=== PATIENT | female | born 1935 | race Caucasian/White ===

== ENCOUNTER 2017-01-04 14:09 | Emergency (ER) | payer MEDICARE, OTHER ==
[2017-01-04] MEDS ORDERED: ONDANSETRON 4 MG ODT TABLET SL ONE (14:55)
[2017-01-04] MEDS ORDERED: MECLIZINE 25 MG TABLET PO ONE (14:55)
--- NOTE | 2017-01-04 14:55 | Emergency Department Record ---
History of Present Illness - General Chief Complaint: Fall Injury Stated Complaint: FALL Time Seen by Provider: 01/04/17 14:40 Source: Patient, Family Mode of Arrival: Wheelchair - History of Present Illness Initial Comments: 81 yo female presents with episodes of feeling dizzy, some nausea since Wednesday. She fell off a stool last Wednesday and hit her head in the frontal area causing a laceration. She developed some nausea nad dizziness over the weekend. The injury occurred in [place]. She is moving up to [place] with family. She denies any fevers. weakness, numbness, chest pain, shortness of breath. 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 The patient states this is a known condition since 2009. She and her daughter are getting a new PCP and will seek a spine referral to follow her in [place] as well. She had a new PCP to see. 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 Place Fall Occurred: Home Loss of Consciousness: None Prolonged Down Time?: No Symptoms Prior to Fall: None Location: Head Severity: Moderate Severity scale (1-10): 6 Associated Symptoms: Headache, Other - [place] Coma Scale Eye Response: (4) Open spontaneously Motor Response: (6) Obeys commands Verbal Response: (5) Oriented [place] Total: 15 - Related Data Home Medications Medication Instructions Recorded Confirmed Last Taken Alprazolam 0.25 mg PO ASDIR 01/04/17 01/04/17 01/01/17 Atorvastatin Calcium 40 mg PO DAILY 01/04/17 01/04/17 01/01/17 Benazepril HCl [Lotensin] 40 mg PO DAILY 01/04/17 01/04/17 01/01/17 Cholecalciferol (Vitamin D3) 2,000 unit PO DAILY 01/04/17 01/04/17 01/01/17 [Vitamin D3] Cyanocobalamin (Vitamin B-12) 1,000 mcg PO DAILY 01/04/17 01/04/17 01/01/17 [Vitamin B-12] Gabapentin [Neurontin] 600 mg PO Q6H 01/04/17 01/04/17 01/01/17 Hydrochlorothiazide [Hctz 25Mg] 25 mg PO DAILY 01/04/17 01/04/17 01/01/17 Levothyroxine Sodium [Synthroid] 88 mcg PO DAILY 01/04/17 01/04/17 01/01/17 Mv,Ca,Min/Folic Acid/Vit K1 1 each PO DAILY 01/04/17 01/04/17 01/01/17 [One-A-Day Women's 50 Plus Tab] Naproxen [Naprosyn] 500 mg PO BID 01/04/17 01/04/17 01/01/17 Omeprazole 20 mg PO TID 01/04/17 01/04/17 01/01/17 Tramadol HCl 50 mg PO Q8H 01/04/17 01/04/17 01/01/17 Verapamil HCl [Calan] 80 mg PO TID 01/04/17 01/04/17 01/01/17 Vitamin E 1,000 unit PO DAILY 01/04/17 01/04/17 01/01/17 Previous Rx's Medication Instructions Recorded Meclizine HCl [Antivert] 25 mg PO Q8H #20 tablet 01/04/17 Ondansetron [Zofran Odt] 4 mg PO Q8H #20 tab.rapdis 01/04/17 Allergies Allergy/AdvReac Type Severity Reaction Status Date / Time bee pollen Allergy Severe ANAPHYLAXIS Verified 01/04/17 14:30 Penicillins Allergy Severe DIFFICULTY Verified 01/04/17 14:30 BREATHING procaine HCl [From Novocain] Allergy Severe DIFFICULTY Verified 01/04/17 14:30 BREATHING Sulfa (Sulfonamide Allergy Severe HIVES Verified 01/04/17 14:30 Antibiotics) codeine AdvReac Severe HEADACHE Verified 01/04/17 14:30 Travel Screening - Travel/Exposure Within Last 30 Days Have you traveled within the last 30 days?: No Review of Systems Constitutional: Denies: Chills, Fever, Malaise, Weakness Eyes: Reports: Vision change (she feels like she has trouble reading since the fall and her glasses were repaired. No changes with distance.). Denies: Eye discharge, Eye pain, Photophobia ENT: Denies: Congestion, Throat pain Respiratory: Denies: Cough, Stridor, Wheezes Cardiovascular: Denies: Chest pain, Palpitations, Syncope Endocrine: Denies: Fatigue Gastrointestinal: Denies: Abdominal pain, Diarrhea, Nausea, Vomiting Genitourinary: Denies: Dysuria, Urgency Musculoskeletal: Denies: Arthralgia, Back pain, Joint swelling, Myalgia, Neck pain Neurological: Reports: Headache, Vertigo. Denies: Abnormal gait, Confusion, Numbness, Paresthesias, Tingling, Tremors, Weakness Psychiatric: Denies: Anxiety Hematological/Lymphatic: Denies: Anemia, Blood Clots, Easy bleeding, Easy bruising, Swollen glands Past Medical History - SOCIAL HISTORY Smoking Status: Former smoker Alcohol Use: Occassional Drug Use: None - RESPIRATORY Hx Respiratory Disorders: No - CARDIOVASCULAR Hx Cardio Disorders: Yes Hx Hypertension: Yes Comment:: high cholesterol - NEURO Hx Neuro Disorders: No - GI Hx GI Disorders: Yes Hx Reflux: Yes - Hx Genitourinary Disorders: Yes Hx Renal Disease: Yes (hx of renal dialysis x6 weeks) - ENDOCRINE Hx Endocrine Disorders: Yes Hx Diabetes: Yes (diet controlled) Hx Thyroid Disease: Yes - MUSCULOSKELETAL Hx Musculoskeletal Disorders: Yes Hx Arthritis: Yes - PSYCH Hx Psych Problems: No - HEMATOLOGY/ONCOLOGY Hx Hematology/Oncology Disorders: Yes Hx Cancer: Yes (breast, skin) Hx Chemotherapy: Yes Hx Radiation Therapy: Yes Family Medical History Any Significant Family History?: Yes Family Hx Comment (NOT TO BE USED IN PLACE OF ITEMS BELOW): Daughter- breast cancer. Aunt- breast cancer Hx Cancer: Brother/Sister Hx Heart Disease: Father, Mother, Brother/Sister Course Vital Signs 01/04/17 14:22 Temperature 98.4 F Pulse Rate 89 Respiratory 18 Rate Blood Pressure 133/87 Pulse Ox 95 - Reevaluation(s) Reevaluation #1: HCT on 12/29/16 Negative 01/04/17 14:56 Reevaluation #2: The HCT scan was negative for any acute injury. 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 01/04/17 15:35 Disposition Disposition: Discharge Clinical Impression: Concussion Qualifiers: Encounter type: initial encounter Loss of consciousness presence/duration: without LOC Qualified Code(s): S06.0X0A - Concussion without loss of consciousness, initial encounter Disposition: Home, Self-Care Condition: (1) Good Instructions: Fall Prevention for Older Adults (ED), Concussion (ED) Additional Instructions: Call your new doctor as soon as possible for followup Return or seek medical care if worse, uncontrolled dizziness or vomiting You are being referred to the [facility] specialty clinic for eye care Prescriptions: Meclizine HCl [Antivert] 25 mg PO Q8H #20 tablet Ondansetron [Zofran Odt] 4 mg PO Q8H #20 tab.rapdis Forms: Patient Portal Access Time of Disposition: 15:38
--- NOTE | 2017-01-07 12:22 | CT SCAN REPORT ---
EXAM: CT OF THE HEAD WITHOUT CONTRAST HISTORY: DIZZINESS AND INTERMITTENT HEADACHE SEVEN DAYS POST HEAD TRAUMA. TECHNIQUE: Routine noncontrast CT examination of the head was performed. Comparison: None at this time. Correlation is made with report from CT head examination dated 12/29/16 from an institution in the [facility]. FINDINGS: There is moderate dilatation of the subarachnoid spaces and borderline ventriculomegaly consistent with generalized atrophy. There is evidence of an old infarct within the superolateral left cerebellar hemisphere versus deep sulcus measuring 5 x 9 mm. Mild periventricular and subcortical white matter lucencies are noted in each cerebral hemisphere. These are nonspecific, but likely areas of chronic small vessel ischemia. No other area of abnormally increased or decreased attenuation is noted throughout the brain substance. No abnormal extraaxial fluid collection nor skull fracture is seen. Surgical skin ernestina are noted in the frontal scalp. These are located left of midline. The visualized paranasal sinuses and mastoid air cells are clear. Post cataract surgery changes are noted bilaterally. IMPRESSION: 1. NO CT EVIDENCE OF ACUTE MAJOR VESSEL INFARCT, INTRACRANIAL HEMORRHAGE, MASS NOR SKULL FRACTURE. 2. GENERALIZED ATROPHY. 3. 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 4. SKIN ERNESTINA WITHIN THE ANTERIOR FRONTAL SCALP. JOB NUMBER: [id number] [facility]
== END 2017-01-04 16:04 | disposition home or self-care (01) ==
LOC: ER 14:09
DX: S06.0X0A Concussion without loss of consciousness, initial encounter (principal); R42 Dizziness and giddiness; R51 Headache; R11.0 Nausea; W08.XXXA Fall from other furniture, initial encounter; Y92.009 Unspecified place in unspecified non-institutional (private) residence as the place of occurrence of the external cause; I12.0 Hypertensive chronic kidney disease with stage 5 chronic kidney disease or end stage renal disease; E11.22 Type 2 diabetes mellitus with diabetic chronic kidney disease; N18.6 End stage renal disease; Z87.891 Personal history of nicotine dependence
CPT/HCPCS: 70450; 99283; 99284

== ENCOUNTER 2017-11-05 10:11 | Emergency (ER) | payer MEDICARE, OTHER ==
--- NOTE | 2017-11-05 10:18 | Emergency Department Record ---
History of Present Illness - General Chief Complaint: Laceration(s) Stated Complaint: LACERATION Time Seen by Provider: 11/05/17 10:12 Source: Patient Mode of Arrival: Ambulatory Limitations: No limitations - History of Present Illness Initial Commments: 82 yo female presents with a concern about a re-injury to her left lower anternior leg. She had a scab from a prior injury that was scraped off by a piece of dropped tupperware. The area bleed for about 2 hours. The patient cleaned the area and the dressed it. Her tetanus is up to date. Prior to the injury this morning the area had developed some surrounding redness. -: Hour(s) (2) Extremity Location: Left: Lower leg Place: Home Context: Accidental Associated Symptoms: None Treatments Prior to Arrival: Bandage - [place] Coma Scale Eye Response: (4) Open spontaneously Motor Response: (6) Obeys commands Verbal Response: (5) Oriented [place] Total: 15 - Related Data Home Medications Medication Instructions Recorded Confirmed Last Taken Duloxetine HCl [Cymbalta] 30 mg PO DAILY 11/05/17 11/05/17 Unknown Previous Rx's Medication Instructions Recorded Cephalexin [Keflex] 500 mg PO TID #21 cap 11/05/17 Allergies Allergy/AdvReac Type Severity Reaction Status Date / Time bee pollen Allergy Severe ANAPHYLAXIS Verified 01/04/17 14:30 Penicillins Allergy Severe DIFFICULTY Verified 01/04/17 14:30 BREATHING procaine HCl [From Novocain] Allergy Severe DIFFICULTY Verified 01/04/17 14:30 BREATHING Sulfa (Sulfonamide Allergy Severe HIVES Verified 01/04/17 14:30 Antibiotics) codeine AdvReac Severe HEADACHE Verified 01/04/17 14:30 Review of Systems Constitutional: Denies: Chills, Fever, Malaise, Weakness Eyes: Denies: Eye discharge ENT: Denies: Congestion, Throat pain Respiratory: Denies: Cough Cardiovascular: Denies: Chest pain Endocrine: Denies: Fatigue Gastrointestinal: Denies: Abdominal pain, Diarrhea, Nausea, Vomiting Genitourinary: Denies: Dysuria Musculoskeletal: Denies: Arthralgia, Back pain, Joint swelling, Myalgia Skin: Reports: As per HPI, Change in color. Denies: Bruising Neurological: Denies: Confusion, Headache Psychiatric: Denies: Anxiety Hematological/Lymphatic: Denies: Blood Clots, Easy bleeding, Easy bruising, Swollen glands Past Medical History - SOCIAL HISTORY Smoking Status: Former smoker Drug Use: None - RESPIRATORY Hx Respiratory Disorders: No - CARDIOVASCULAR Hx Cardio Disorders: Yes Hx Hypertension: Yes Comment:: high cholesterol - NEURO Hx Neuro Disorders: No - GI Hx GI Disorders: Yes Hx Reflux: Yes - Hx Genitourinary Disorders: Yes Hx Renal Disease: Yes (hx of renal dialysis x6 weeks) - ENDOCRINE Hx Endocrine Disorders: Yes Hx Diabetes: Yes (diet controlled) Hx Thyroid Disease: Yes - MUSCULOSKELETAL Hx Musculoskeletal Disorders: Yes Hx Arthritis: Yes - PSYCH Hx Psych Problems: No - HEMATOLOGY/ONCOLOGY Hx Hematology/Oncology Disorders: Yes Hx Cancer: Yes (breast, skin) Hx Chemotherapy: Yes Hx Radiation Therapy: Yes Family Medical History Family Hx Comment (NOT TO BE USED IN PLACE OF ITEMS BELOW): Daughter- breast cancer. Aunt- breast cancer Hx Cancer: Brother/Sister Hx Heart Disease: Father, Mother, Brother/Sister Physical Exam - General General Appearance: Alert, Oriented x3, Cooperative, No acute distress Limitations: No limitations - Head Head exam: Normal inspection - Eye Eye exam: Normal appearance - ENT ENT exam: Normal exam Ear exam: Normal external inspection Nasal Exam: Normal inspection Mouth exam: Normal external inspection - Neck Neck exam: Normal inspection - Cardiovascular Cardiovascular Exam: Regular rate, Normal rhythm - Rectal Rectal exam: Deferred - exam: Deferred - Extremities Extremities exam: Full ROM, Normal capillary refill. negative: Normal inspection, Tenderness Image of Full Body: 1 - 1cm skin tear, dry and clean without bleeding, 1cm surrounding redness, no pus - Back Back exam: Reports: Full ROM - Neurological Neurological exam: Alert, Normal gait, Oriented X3 - Psychiatric Psychiatric exam: Normal affect, Normal mood - Skin Skin exam: Dry, Intact, Normal color, Warm Course - Reevaluation(s) Reevaluation #1: The skin tear was cleaned with dermal wound shoe cleaner and NS NO bleeding The 1cm skin tear was treated with steri strips with good results. 11/05/17 10:16 11/05/17 10:25 Dressing were provided Kelfex RX provided for the erythema that had been developing over the last few days Disposition Disposition: Discharge Clinical Impression: Skin tear Cellulitis Qualifiers: Site of cellulitis: extremity Site of cellulitis of extremity: lower extremity Laterality: left Qualified Code(s): L03.116 - Cellulitis of left lower limb Disposition: Home, Self-Care Condition: (1) Good Instructions: Cellulitis (ED), Skin Tear (ED) Additional Instructions: Return if you have bleeding, pain, swelling, spreading redness or pus Follow up in one week to recheck the area with your doctor Prescriptions: Cephalexin [Keflex] 500 mg PO TID #21 cap Forms: Patient Portal Access Time of Disposition: 10:18 Quality - Quality Measures Quality Measures: N/A - Blood Pressure Screening Does Patient Have Any of the Following: No Blood Pressure Classification: Pre-Hypertensive BP Reading Systolic Measurement: 132 Diastolic Measurement: 79 Screening for High Blood Pressure: < Pre-Hypertensive BP, F/U Documented > [ [id number]] Pre-Hypertensive Follow-up Interventions: Referral to alternative/primary care provider.
== END 2017-11-05 10:33 | disposition home or self-care (01) ==
LOC: ER 10:11
DX: S81.812A Laceration without foreign body, left lower leg, initial encounter (principal); L03.116 Cellulitis of left lower limb; E11.9 Type 2 diabetes mellitus without complications; I10 Essential (primary) hypertension; Z87.891 Personal history of nicotine dependence; W22.8XXA Striking against or struck by other objects, initial encounter; Y92.009 Unspecified place in unspecified non-institutional (private) residence as the place of occurrence of the external cause
CPT/HCPCS: 99283

== ENCOUNTER 2019-02-27 19:06 | Emergency (ER) | payer MEDICARE, OTHER ==
--- NOTE | 2019-02-27 19:09 | Emergency Department Record ---
History of Present Illness - General Chief Complaint: Back Pain/Injury Stated Complaint: COUGH,BCK PAIN Time Seen by Provider: 02/27/19 19:09 Source: Patient Mode of Arrival: Ambulatory Limitations: No limitations - History of Present Illness Initial Comments: The patient is here due to a one day hx of back pain, with cough and sputum production. The pain is sharp and stabbing and much worse with any movement and bending and coughing. The patient also has a long hx of chronic back pain due to scoliosis and has had an upper thoracic spine surgery for the issue many years ago. She does take Tramadol chronically but did run out 2 days ago. She denies any chest pain when NOT coughing, or any SOB, VIANCA, sweating or fever. The patient also denies any falls or trauma. The patient has had her HCTZ stopped a month or two ago. MD Complaint: Back pain Onset/Timin -: Days(s) - Related Data Home Medications Medication Instructions Recorded Confirmed Last Taken Aspirin [Aspir-Low] 81 mg PO DAILY 02/27/19 02/27/19 Unknown Carvedilol [Coreg] 2.125 mg PO BID 02/27/19 02/27/19 Unknown Previous Rx's Medication Instructions Recorded Albuterol Sulfate [Proair Hfa] 2 puff IH QID PRN #1 inhaler 02/27/19 Doxycycline Monohydrate [Mondoxyne 100 mg PO BID 7 Days #14 capsule 02/27/19 Nl] Hydrochlorothiazide [Hctz] 25 mg PO DAILY #7 tablet 02/27/19 Allergies Allergy/AdvReac Type Severity Reaction Status Date / Time bee pollen Allergy Severe ANAPHYLAXIS Verified 01/04/17 14:30 Penicillins Allergy Severe DIFFICULTY Verified 01/04/17 14:30 BREATHING procaine HCl [From Novocain] Allergy Severe DIFFICULTY Verified 01/04/17 14:30 BREATHING Sulfa (Sulfonamide Allergy Severe HIVES Verified 01/04/17 14:30 Antibiotics) codeine AdvReac Severe HEADACHE Verified 01/04/17 14:30 Review of Systems Constitutional: Reports: Malaise. Denies: Chills, Fever Eyes: Denies: Eye discharge ENT: Reports: Congestion Respiratory: Reports: Cough. Denies: Dyspnea Cardiovascular: Denies: Arrhythmia, Chest pain Endocrine: Reports: Fatigue Gastrointestinal: Denies: Nausea Genitourinary: Denies: Dysuria Musculoskeletal: Denies: Arthralgia Neurological: Denies: Abnormal gait Past Medical History - SOCIAL HISTORY Smoking Status: Former smoker Drug Use: None - RESPIRATORY Hx Respiratory Disorders: No - CARDIOVASCULAR Hx Cardio Disorders: Yes Hx Hypertension: Yes Comment:: high cholesterol - NEURO Hx Neuro Disorders: No - GI Hx GI Disorders: Yes Hx Reflux: Yes - Hx Genitourinary Disorders: Yes Hx Renal Disease: Yes (hx of renal dialysis x6 weeks) - ENDOCRINE Hx Endocrine Disorders: Yes Hx Diabetes: Yes (diet controlled) Hx Thyroid Disease: Yes - MUSCULOSKELETAL Hx Musculoskeletal Disorders: Yes Hx Arthritis: Yes - PSYCH Hx Psych Problems: No - HEMATOLOGY/ONCOLOGY Hx Hematology/Oncology Disorders: Yes Hx Cancer: Yes (breast, skin) Hx Chemotherapy: Yes Hx Radiation Therapy: Yes Family Medical History Family Hx Comment (NOT TO BE USED IN PLACE OF ITEMS BELOW): Daughter- breast cancer. Aunt- breast cancer Hx Cancer: Brother/Sister Hx Heart Disease: Father, Mother, Brother/Sister Physical Exam - General General Appearance: Alert, Oriented x3, Cooperative, No acute distress - Head Head exam: Atraumatic, Normocephalic - Eye Eye exam: Normal appearance, PERRL, EOMI - ENT Throat exam: Normal inspection. negative: Tonsillar erythema, Tonsillar exudate - Neck Neck exam: Normal inspection, Full ROM. negative: Tenderness - Respiratory Respiratory exam: Chest wall tenderness (There is very reproducible tenderness to palpation over the anterior chest wall.), Rhonchi (only at the L base. (The patient has been laying on her L side all day today and has been unable to sit or stand up.). negative: Normal lung sounds bilaterally, Respiratory distress - Cardiovascular Cardiovascular Exam: Regular rate, Normal rhythm, Normal heart sounds - GI/Abdominal GI/Abdominal exam: Soft, Normal bowel sounds. negative: Tenderness - Extremities Extremities exam: Normal inspection, Full ROM, Normal capillary refill, Pedal edema (There is trace L leg edema but that is stable. There is no R leg edema.). negative: Calf tenderness, Tenderness Image of Full Body: 1 - Area of pain and reproducible tenderness. - Back Back exam: Reports: Paraspinal tenderness (The patient has very reproducible tenderness to palpation over the upper thoracic spine area.), Vertebral tenderness. Denies: Normal inspection (There is a very old surgical scar over the superior thoracic spine area which I believe was for her spinal stabilization.) - Neurological Neurological exam: Alert, Oriented X3. negative: Altered, Motor sensory deficit - Skin Skin exam: negative: Rash Course Vital Signs 02/27/19 19:07 Temperature 98.5 F Pulse Rate [ 101 H Pulse Ox Probe] Respiratory 24 Rate Blood Pressure 177/90 [Right Arm] Pulse Ox 95 - Reevaluation(s) Reevaluation #1: The patient is doing much better at this time. She denies any new pain or SOB and states her back pain is much improved. On exam the rhonchi at the L base has cleared with standing and coughing. She is up walking normally with her walker and is feeling back to normal and is ready for home. 02/27/19 20:22 Medical Decision Making - Data Complexity MDM Data: Labs Ordered and/or Reviewed, X-Ray Ordered and/or Reviewed, EKG Ordered and/or Reviewed - Lab Data Result diagrams: 02/27/19 18:40 02/27/19 18:40 - EKG Data -: EKG Interpreted by Tn EKG: No Acute Changes, Unchanged From Previous, LBBB - Radiology Data Radiology results: Report reviewed (CXR: Possible increased interstitial markings.) Disposition Disposition: Discharge Clinical Impression: Bronchitis Disposition: Home, Self-Care Condition: (2) Stable Instructions: Chronic Back Pain (ED) Additional Instructions: Please continue your Tramadol and please take the Doxycycline, Albuterol and HCTZ as directed. Please see your family doctor later this week for recheck and return to the ER for any worsening symptoms. Prescriptions: Hydrochlorothiazide [Hctz] 25 mg PO DAILY #7 tablet Doxycycline Monohydrate [Mondoxyne Nl] 100 mg PO BID 7 Days #14 capsule Albuterol Sulfate [Proair Hfa] 2 puff IH QID PRN #1 inhaler PRN Reason: Cough And Difficulty Breathing Forms: Patient Portal Access Time of Disposition: 20:25 Quality - Quality Measures Quality Measures: N/A - Blood Pressure Screening View Details: Yes Does Patient Have Any of the Following: Active Dx of HTN Blood Pressure Classification: Hypertensive Reading Systolic Measurement: 172 Diastolic Measurement: 63 Screening for High Blood Pressure: Patient Exclusion, Hx of HTN [G9744]
[2019-02-27] MEDS ORDERED: ACETAMINOPHEN 1,000 MG/100 ML BTL IVPB ONE (19:11)
[2019-02-27] MEDS ORDERED: TRAMADOL HCL 50 MG TABLET PO ONE ×3 (19:11→20:26)
[2019-02-27 19:19] LABS: ABSOLUTE NEUTROPHIL COUNT 7.21; BASO % 0.3 % (0-6); EOS % 2.4 % (0-6); GRAN % 71.9 % (47-80); HEMATOCRIT 39.8 % (35.0-47.0); HEMOGLOBIN 12.3 gm/dl (11.6-16.0); LYMPH % 14.9 % (16-45); MEAN CELL VOLUME 92.3 fl (81-97); MEAN CORPUSCULAR HEMOGLOBIN 28.5 pg (27-33); MEAN CORPUSCULAR HGB CONC 30.9 g/dl (32-36); MEAN PLATELET VOLUME 11.7 fl (7.4-10.4); MONO % 10.5 % (0-9); PLATELET COUNT 203 K/uL (130-400); RED BLOOD COUNT 4.31 M/uL (3.80-5.40); RED CELL DISTRIBUTION WIDTH 15.3 % (11.5-14.5)
[2019-02-27 19:28] LABS: BLOOD UREA NITROGEN 24 mg/dL (8-23)
[2019-02-27 19:29] LABS: CREATININE 1.3 mg/dL (0.5-0.9); EST GLOMERULAR FILTRATION RATE 42 mL/min; TOTAL PROTEIN 6.7 g/dL (6.6-8.7)
[2019-02-27 19:31] LABS: GLUCOSE,RANDOM 111 mg/dL (74-109)
[2019-02-27 19:34] LABS: ALB/GLOB RATIO 1.4 (1.1-1.8); ALBUMIN 3.9 g/dL (4.0-5.0); ALKALINE PHOSPHATASE 116 U/L (35-104); ALT/SGPT 11 U/L (<33); AST/SGOT 19 U/L (10.0-35.0); CREATINE PHOSPHOKINASE 177 U/L (26-192)
[2019-02-27 19:36] LABS: CKMB 3.4 ng/mL (<3.77)
[2019-02-27] MEDS ORDERED: DOXYCYCLINE HYCLATE 100 MG CAPSULE PO ONE (20:03)
--- NOTE | 2019-03-01 21:07 | RADIOLOGY REPORT ---
EXAM: CHEST 2 VIEWS HISTORY: PATIENT HAS COUGH. TECHNIQUE: Two views of the chest are provided along with a comparison study dated 10/19/2017. FINDINGS: The cardiomediastinal silhouette is within normal limits for size and contour. Carlie appear unremarkable. Post-op sternotomy changes are identified. Postoperative changes are identified within the lower cervical spine. Diffuse interstitial infiltrates are identified bilaterally. Peribronchial thickening is noted within the perihilar distribution. There is no radiographic evidence of a focal consolidation or pleural effusion. IMPRESSION: DIFFUSE INTERSTITIAL PROMINENCE IS IDENTIFIED BILATERALLY WITH PERIBRONCHIAL THICKENING OF THE PERIHILAR DISTRIBUTION. THIS FINDING MAY REPRESENT PULMONARY EDEMA AND/OR PNEUMONIA. A FOLLOW-UP PA AND LATERAL VIEW OF THE CHEST CAN BE OBTAINED UNTIL RESOLUTION OF FINDINGS. JOB NUMBER: [id number] [facility]
== END 2019-02-27 20:36 | disposition home or self-care (01) ==
LOC: ER 19:06
DX: J02.9 Acute pharyngitis, unspecified (principal); R07.89 Other chest pain; I10 Essential (primary) hypertension; M54.6 Pain in thoracic spine; Z87.891 Personal history of nicotine dependence
CPT/HCPCS: 71046; 80053; 82550; 82553; 84484; 85025; 93005; 93010; 96374; 99284